=== PATIENT | male | born 1990 | race Caucasian/White ===

== ENCOUNTER 2016-05-20 08:06 | Emergency (ER) | payer OTHER ==
[~2016-05-20] VITALS: Ht 188 cm; Wt 72.6 kg
[2016-05-20 09:06] VITALS: BP 119/62
--- NOTE | 2016-05-20 09:10 | NUR ---
PT AMBULATED TO ER BED 07.
--- NOTE | 2016-05-20 09:11 | NUR ---
ER AT BEDSIDE
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
--- NOTE | 2016-05-20 09:28 | NUR ---
Patient discharged with v/s stable. Written and verbal after care instructions given and explained. Patient verbalized understanding. Ambulatory with steady gait. All questions addressed prior to discharge. Advised to follow up with PMD.ENCOURAGED FLUID INTAKE AND EAT NUTRICIOUS FOOD FOR FAST WOUND HEALING AND PT AGREED TO IT.
[2016-05-20 09:30] VITALS: BP 119/62
== END 2016-05-20 09:28 | disposition home or self-care (01) ==
LOC: MED 08:06
DX: S01.412D Laceration without foreign body of left cheek and temporomandibular area, subsequent encounter (principal)